=== PATIENT | female | born 1965 | race Caucasian/White ===

== ENCOUNTER → 2023-09-14 | Outpatient (CLI) | payer OTHER, SELFPAY | END | disposition home or self-care (01) | LOC: PSN 06:36 | PROVIDERS: PCP Family Medicine; Referring Provider Family Medicine; Visit Provider Family Medicine | DX: J44.9 Chronic obstructive pulmonary disease, unspecified (principal) | CPT/HCPCS: 94060; 94726; 94729 ==

== ENCOUNTER → 2023-12-15 | Outpatient (CLI) | payer OTHER, SELFPAY | END | disposition home or self-care (01) | PROVIDERS: PCP Family Medicine; Referring Provider Internal Medicine; Visit Provider Internal Medicine | DX: J44.9 Chronic obstructive pulmonary disease, unspecified (principal); Z72.0 Tobacco use; R06.02 Shortness of breath | CPT/HCPCS: 94762 ==

== ENCOUNTER → 2024-09-27 | Outpatient (CLI) | payer OTHER, SELFPAY ==
[2024-09-27 15:35] LABS: Absolute Lymphocyte Count 1.74 X10^3/uL (0.83-4.51); Absolute Neutrophil Count 8.1 X10^3/uL (2.0-7.7); Basophil# 0.05 X10^3/uL; Basophil% 0.4 % (0-1); Eosinophil# 0.18 X10^3/uL; Eosinophils% 1.6 % (0-5); Hematocrit 34.8 % (37-47); Hemoglobin 11.6 g/dL (12.0-15.0); Lymphocyte # 1.74 X10^3/ul (0.83-4.51); Lymphocyte % 15.3 % (19-41); Mean Corp Hgb Conc 33.3 g/dL (32-36); Mean Corpuscular Hgb 29.1 pg (27.0-32.0); Mean Corpuscular Volume 87.2 fL (81-99); Monocyte% 10.6 % (0-10); NRBC Flagged by Analyzer 0 % (0-5); Neutrophil # 8.11 X10^3/uL (2.7-7.7); Neutrophil % 71.3 % (47-70); Platelet Count 266 K/mm3 (150-450); RBC Distribution Width SD 44.8 fl (35.1-43.9); Red Blood Count 3.99 M/mm3 (4.2-5.4); White Blood Count 11.4 K/mm3 (4.4-11.0)
== END | disposition home or self-care (01) ==
LOC: MTLAB 13:09
PROVIDERS: PCP Family Medicine; Referring Provider Internal Medicine Pulmonary Disease; Visit Provider Internal Medicine Pulmonary Disease
DX: J44.9 Chronic obstructive pulmonary disease, unspecified (principal)
CPT/HCPCS: 36415; 85025

== ENCOUNTER → 2024-11-15 | Outpatient (CLI) | payer MEDICAID, SELFPAY ==
--- NOTE | 2024-11-15 09:00 | PET_ITS ---
EXAM: PET/CT Study CLINICAL HISTORY: 59 y/o F with SOLITARY PULMONARY NODULE COMPARISON: None. TECHNIQUE: PROCEDURE: Following the intravenous administration of radionucleotide, image acquisition on a dedicated PET/CT unit was performed at one hour post injection. A preliminary CT study encompassing the Skull base, neck, chest, abdomen, pelvis, and proximal thighs was performed for purposes of attenuation correction and anatomic localization. The patient's blood glucose level was 83 mg/dL (allowable range: 50-180 mg/dL). RADIOPHARMACEUTICAL: 14.7 mCi 18F-FDG (Fluorodeoxyglucose F18) IV was injected into the patient. FINDINGS: Physiologic uptake: There may be expected metabolic uptake within the brain, tongue and floor of the mouth and larynx/vocal cords, heart, mo (many normal individuals have hilar uptake in less than 3 nodes with mildly avid hilar nodes less than 2.7 SUV), liver and spleen, system, and GI tract and symmetric muscle uptake. FDG AVID AND NON-AVID LESIONS. Reported avid SUV values (g/mL*) are maximum SUV. Average hepatic SUV: 2.1 NECK: No suspicious hypermetabolic uptake. CHEST: Focus of hypermetabolic uptake within the proximal esophagus, demonstrating a maximum SUV of 3.3. Mild hypermetabolic activity of the pulmonary nodule along the left major fissure, demonstrating a maximum SUV of 3.1. Hypermetabolic activity of a left upper lobe pulmonary nodule, demonstrating a maximum SUV of 4.0. Marked hypermetabolic activity of the right lower lobe pulmonary consolidation, demonstrating a maximum SUV of 13.8. ABDOMEN: No suspicious hypermetabolic uptake. PELVIS: No suspicious hypermetabolic uptake. Additional CT findings: Severe coronary artery calcifications. Severe emphysema with scattered areas of scarring. Moderate calcific plaque of the thoracic aorta and aortoiliac vessels. Sludge within the dependent gallbladder. Tiny nonobstructing left renal calculi. Bilateral renal cysts, [id number]. Thoracolumbar spondylosis. PET/PET/CT Tumor Base -Thigh Init IMPRESSION: 1. Marked hypermetabolic activity of the right lower lobe pulmonary consolidati on, which is indeterminate and may represent pneumonia or pulmonary neoplasm. Follow-up CT chest is recommended in 1 month to evaluate for stability/resolution. 2. Hypermetabolic left lung pulmonary nodules, most compatible with lung neopla sm. No evidence of metastatic disease. 3. Hypermetabolic focus within the proximal esophagus, incompletely evaluated b y CT scan. Correlation with EGD is recommended as findings may represent esophageal neoplasm. Please note the low-dose CT scan was performed to facilitate PET image reconstr uction and anatomic localization and does not replace a diagnostic CT. Any diagnostic CT requested and performed at the time of the PET will be reported separately. Reading Location: [id number]
== END | disposition home or self-care (01) ==
PROVIDERS: PCP Family Medicine; Referring Provider Internal Medicine Pulmonary Disease; Visit Provider Internal Medicine Pulmonary Disease
DX: R91.1 Solitary pulmonary nodule (principal)
CPT/HCPCS: 78815; A9552